=== PATIENT | female | born 1985 | race Hispanic/Latino ===

== ENCOUNTER 2017-01-18 16:09 | Inpatient (IN) | payer OTHER ==
[2017-01-18] MEDS ORDERED: LIDOCAINE HCL/PF 1% 30 ML VIAL SUBCUT PRN (16:28)
[2017-01-18] MEDS ORDERED: FENTANYL 100 MCG/2 ML VIAL IV ONE (16:28)
[2017-01-18] MEDS ORDERED: MISOPROSTOL 200 MCG TABLET PO PRN ×2 (16:28)
[2017-01-18] MEDS ORDERED: ONDANSETRON HCL 4 MG/2 ML VIAL IV PRN (16:28)
[2017-01-18] MEDS ORDERED: HOME MEDICATION LIST NEEDED 1 EA EACH MISC ONE (16:28)
[2017-01-18] MEDS ORDERED: OXYTOCIN/NORMAL SALINE 30 UNIT/500 ML BAG IV SCH (16:28)
[2017-01-18] MEDS: MISOPROSTOL 25 MCG CAPSULE VAGINALLY SCH ×3 (17:20→23:44)
[2017-01-18] MEDS ORDERED: TERBUTALINE SULFATE 1 MG/ML VIAL IV PRN (17:24)
[2017-01-18] MEDS ORDERED: MISOPROSTOL 25 MCG CAPSULE VAGINALLY ONE (17:28)
--- NOTE | 2017-01-18 17:31 | PROGRESS NOTE:Antepartum ---
Assessment and Plan - Date of Encounter Date of Encounter: 01/18/17 (1) Normal first confirmed, currently in third trimester Status: Acute Assessment and plan: Discussed with patient and spouse. Will proceed with induction. Vertex reconfirmed by ultrasound. They are comfortable with plan. Current Visit: No - Time Spent With Patient Total time spent with greater than 50% in coordination of care (as documented) at patient's floor/unit and/or counseling patient: ELECTRON MICROSCOPIST: Antepartum PN Subj - Subjective Interval history: G1 female at 40 4/7 weeks admitted for Misoprostol cervical ripening and induction of labor after an uncomplicated . Lives in [facility], initial care there and transferred care to [place] in the third trimester. Patient reports: appetite normal, voiding normally, pain well controlled Antepartum ROS: movement normal, no vaginal bleeding, no contractions, no loss of fluid, no headache, no shortness of breath, no visual changes ELECTRON MICROSCOPIST: Antepartum PN Obj Exam - Latest Vital Signs and I&O Latest Vital Signs/I&O: Intake & Output 01/17/17 01/18/17 01/18/17 17:59 05:59 17:59 Weight 70 kg - Exam Heart Monitor: category I Lungs: Bilateral: normal Heart Rhythm: Present: regular Extremities: Absent: tenderness Abdomen: Present: soft. Absent: tenderness Cervical Dilatation Degree: 1 (FT) Cervical Effacement Percentage: 50 Station: -2
[2017-01-18 18:17] LABS: BASOPHILS 0.2 % (0.0-2.0); EOSINOPHILS 0.3 % (0.0-6.0); HEMATOCRIT 34.3 % (36.0-48.0); LYMPHOCYTES 16.2 % (20.0-40.0); LYMPHOCYTES# 1.6 X 10^3uL (0.8-3.8); MEAN CELL VOLUME 78.1 fL (80.0-100.0); MEAN CORPUS. HGB CONCENTRATION 32.2 g/dL (32.0-36.0); MEAN CORPUSCULAR HEMOGLOBIN 25.1 pg (29.0-35.0); MEAN PLATELET VOLUME 10.1 fL (7.4-10.4); MONOCYTES 7.4 % (2.0-10.0); MONOCYTES# 0.7 X 10^3uL (0.2-1.0); NEUTROPHILS 75.9 % (54.0-75.0); NEUTROPHILS# 7.6 X 10^3uL (2.6-6.7); PLATELET COUNT 248 X 10^3uL (130-440); RED BLOOD COUNT 4.39 X 10^6uL (4.20-6.10); RED CELL DISTRIBUTION WIDTH 14.4 % (11.5-14.5); WHITE BLOOD COUNT 9.9 X 10^3uL (3.9-10.7)
[2017-01-18] MEDS ORDERED: LORazepam 0.5 MG TABLET PO PRN (19:49)
[2017-01-18 19:57] LABS: ABO GROUP TYPE A; ANTIBODY SCREEN NEGATIVE; RH TYPE POSITIVE
--- NOTE | 2017-01-18 20:22 | PROGRESS NOTE:Antepartum ---
Assessment and Plan - Date of Encounter Date of Encounter: 01/18/17 (1) Normal first confirmed, currently in third trimester Status: Acute Assessment and plan: Second dose misoprostol placed. Current Visit: No - Time Spent With Patient Total time spent with greater than 50% in coordination of care (as documented) at patient's floor/unit and/or counseling patient: RECEPTION CENTRE MANAGER: Antepartum PN Subj - Subjective Patient reports: appetite normal, voiding normally, pain well controlled Antepartum ROS: contractions (irregular, mild), movement normal, no vaginal bleeding, no loss of fluid, no headache, no shortness of breath, no visual changes RECEPTION CENTRE MANAGER: Antepartum PN Obj Exam - Latest Vital Signs and I&O Latest Vital Signs/I&O: Vital Signs Temp 36.9 C 01/18/17 17:15 Pulse 97 H 01/18/17 17:15 Resp 16 01/18/17 17:15 BP 112/63 01/18/17 17:15 Pulse Ox 97 01/18/17 17:15 Intake & Output 01/18/17 01/18/17 01/19/17 05:59 17:59 05:59 Weight 70 kg Other: Urine Appearance Cloudy Urine Color Yellow Voiding Method Toilet - Exam Heart Monitor: category I Heart Rhythm: Present: regular Extremities: Absent: tenderness Abdomen: Present: soft. Absent: tenderness Cervical Dilatation Degree: 1 Cervical Effacement Percentage: 50 Station: -2 - Lab Labs: Laboratory Last Values WBC 9.9 X 10^3uL (3.9-10.7) 01/18/17 16:28 RBC 4.39 X 10^6uL (4.20-6.10) 01/18/17 16:28 Hgb 11.0 g/dL (12.0-16.0) L 01/18/17 16:28 Hct 34.3 % (36.0-48.0) L 01/18/17 16:28 MCV 78.1 fL (80.0-100.0) L 01/18/17 16:28 MCH 25.1 pg (29.0-35.0) L 01/18/17 16:28 MCHC 32.2 g/dL (32.0-36.0) 01/18/17 16:28 RDW 14.4 % (11.5-14.5) 01/18/17 16:28 Plt Count 248 X 10^3uL (130-440) 01/18/17 16:28 MPV 10.1 fL (7.4-10.4) 01/18/17 16:28 Neutrophils % 75.9 % (54.0-75.0) H 01/18/17 16:28 Lymphocytes % 16.2 % (20.0-40.0) L 01/18/17 16:28 Eosinophils % 0.3 % (0.0-6.0) 01/18/17 16:28 Basophils % 0.2 % (0.0-2.0) 01/18/17 16:28 Neutrophils # 7.6 X 10^3uL (2.6-6.7) H 01/18/17 16:28 Lymphocytes # 1.6 X 10^3uL (0.8-3.8) 01/18/17 16:28 Monocytes 7.4 % (2.0-10.0) 01/18/17 16:28 Monocytes # 0.7 X 10^3uL (0.2-1.0) 01/18/17 16:28 Eosinophils # 0.0 X 10^3uL (0.0-0.4) 01/18/17 16:28 Basophils # 0.0 X 10^3uL (0.0-0.1) 01/18/17 16:28 ABO Group Type a 01/18/17 16:28 Rh Factor Positive 01/18/17 16:28 Antibody Screen Negative 01/18/17 16:28
[2017-01-18] MEDS: LACTATED RINGERS 1,000 ML IV SCH (20:50)
[2017-01-18] MEDS ORDERED: LORazepam 0.5 MG TABLET ONE (23:43)
[2017-01-19] MEDS: FENTANYL 100 MCG/2 ML VIAL IV PRN ×3 (00:56→01:21)
[2017-01-19] MEDS: LACTATED RINGERS 1,000 ML IV SCH ×2 (01:18→04:43)
[2017-01-19] MEDS ORDERED: ROPIVACAINE HCL IN 0.9%NACL/PF 120 MG/60 ML SYRINGE ONE (01:45)
[2017-01-19] MEDS ORDERED: PHENYLEPHRINE HCL 10,000 MCG/ML VIAL ONE (01:48)
[2017-01-19] MEDS ORDERED: BUPIVACAINE HCL/PF 0.5% 30 ML VIAL ONE (02:00)
[2017-01-19] MEDS: EPHEDrine SULFATE 50 MG/ML VIAL ONE ×2 (02:24→10:58)
[2017-01-19] MEDS ORDERED: NALBUPHINE HCL 10 MG/ML AMP IV PRN (03:09)
[2017-01-19] MEDS ORDERED: EPHEDrine SULFATE 50 MG/ML VIAL IV PRN (03:09)
[2017-01-19] MEDS: PHENYLEPHRINE HCL 10,000 MCG/ML VIAL IV PRN ×2 (03:52→03:59)
--- NOTE | 2017-01-19 04:41 | PROGRESS NOTE:Antepartum ---
Assessment and Plan - Date of Encounter Date of Encounter: 01/19/17 (1) Normal first confirmed, currently in third trimester Status: Acute Assessment and plan: Good response to cervical ripening, will begin Pitocin for augmentation. Current Visit: No - Time Spent With Patient Total time spent with greater than 50% in coordination of care (as documented) at patient's floor/unit and/or counseling patient: FINANCIAL SECRETARY: Antepartum PN Subj - Subjective Interval history: Has received 2 doses of Misoprostol. Excellent response, now has epidural in place and is comfortable but contractions have spaced out. Patient reports: pain well controlled Antepartum ROS: contractions, movement normal, no vaginal bleeding, no loss of fluid, no headache, no shortness of breath, no visual changes FINANCIAL SECRETARY: Antepartum PN Obj Exam - Latest Vital Signs and I&O Latest Vital Signs/I&O: Vital Signs Temp 36.6 C 01/18/17 20:20 Pulse 69 01/18/17 21:15 Resp 16 01/18/17 21:15 BP 115/74 01/18/17 21:15 Pulse Ox 97 01/18/17 21:15 Intake & Output 01/18/17 01/18/17 01/19/17 05:59 17:59 05:59 Intake Total 1000 Balance 1000 Weight 70 kg Intake: IV 1000 Right Forearm 1000 Other: Urine Appearance Cloudy Cloudy Urine Color Yellow Yellow Voiding Method Toilet Toilet - Exam Heart Monitor: category I (currently, did have decels associated with low BP after epidural, corrected now) Heart Rhythm: Present: regular Extremities: Absent: tenderness Abdomen: Present: soft. Absent: tenderness Cervical Dilatation Degree: 5 Cervical Effacement Percentage: 70 Station: -2 Additional Comments: AROM clear - Lab Labs: Laboratory Last Values WBC 9.9 X 10^3uL (3.9-10.7) 01/18/17 16:28 RBC 4.39 X 10^6uL (4.20-6.10) 01/18/17 16:28 Hgb 11.0 g/dL (12.0-16.0) L 01/18/17 16:28 Hct 34.3 % (36.0-48.0) L 01/18/17 16:28 MCV 78.1 fL (80.0-100.0) L 01/18/17 16:28 MCH 25.1 pg (29.0-35.0) L 01/18/17 16:28 MCHC 32.2 g/dL (32.0-36.0) 01/18/17 16:28 RDW 14.4 % (11.5-14.5) 01/18/17 16:28 Plt Count 248 X 10^3uL (130-440) 01/18/17 16:28 MPV 10.1 fL (7.4-10.4) 01/18/17 16:28 Neutrophils % 75.9 % (54.0-75.0) H 01/18/17 16:28 Lymphocytes % 16.2 % (20.0-40.0) L 01/18/17 16:28 Eosinophils % 0.3 % (0.0-6.0) 01/18/17 16:28 Basophils % 0.2 % (0.0-2.0) 01/18/17 16:28 Neutrophils # 7.6 X 10^3uL (2.6-6.7) H 01/18/17 16:28 Lymphocytes # 1.6 X 10^3uL (0.8-3.8) 01/18/17 16:28 Monocytes 7.4 % (2.0-10.0) 01/18/17 16:28 Monocytes # 0.7 X 10^3uL (0.2-1.0) 01/18/17 16:28 Eosinophils # 0.0 X 10^3uL (0.0-0.4) 01/18/17 16:28 Basophils # 0.0 X 10^3uL (0.0-0.1) 01/18/17 16:28 ABO Group Type a 01/18/17 16:28 Rh Factor Positive 01/18/17 16:28 Antibody Screen Negative 01/18/17 16:28
[2017-01-19] MEDS ORDERED: OXYTOCIN/NORMAL SALINE 30 UNIT/500 ML BAG IV SCH ×2 (05:00→09:21)
[2017-01-19] MEDS ORDERED: LANOLIN CREAM 1 APP/7 GM TUBE TOPICAL PRN (09:21)
[2017-01-19] MEDS ORDERED: HOME MEDICATION LIST NEEDED 1 EA EACH MISC ONE (09:21)
[2017-01-19] MEDS ORDERED: LORazepam 0.5 MG TABLET PO PRN (09:21)
[2017-01-19] MEDS ORDERED: HC ACETATE/PRAMOXINE HCL FOAM 1 APPLIC APP RC PRN (09:21)
[2017-01-19] MEDS ORDERED: MISOPROSTOL 200 MCG TABLET PO PRN ×2 (09:21)
[2017-01-19] MEDS ORDERED: BENZOCAINE/LANOLIN/ALOE 1 SPRAY BOTTLE TOPICAL PRN (09:21)
[2017-01-19] MEDS ORDERED: DIPHENHYDRAMINE 25 MG CAPSULE PO PRN (09:21)
[2017-01-19] MEDS ORDERED: WITCH HAZEL 1 EACH MED..PAD TP PRN (09:21)
[2017-01-19] MEDS ORDERED: ACETAMINOPHEN/CODEINE 300/30MG 1 TAB TABLET PO PRN (09:21)
--- NOTE | 2017-01-19 09:32 | PROCEDURE NOTE: Vaginal Del ---
OB Procedure Vaginal Delivery - Vaginal Delivery Estimated Gestational Age (weeks): 40 (01/31) Delivery Presentation: vertex Delivery Position: OA Heart Monitor: category I (during most of labor) Intrapartum Events: meconium, recurrant variable decelerations (with pushing) Delivery Induction: misoprostol Delivery Augmentation: rupture of membranes, pitocin Amniotic Fluid: meconium Delivery Monitor: external FHT, external uterine Delivery Method: Indicators for Instrumentation: maternal exhaustion Delivery procedure: station (+3) Vacuum type: hard cup Shoulders: without difficulty Placenta delivered: yes Delivery Placenta: expressed Delivery Cord: 3 Vessels Nuchal Cord # of Loops: 0 Cord clamped: Yes (delayed) Cord blood obtained: Yes Episiotomy: none Delivery Laceration: vaginal lac/Rt Sidewall, 1st degree Suture Type for Laceration Repair: 3.0 Vicryl at 1 minute: 8 at 5 minutes: 9 Gender: Female [place] Weight: 2.602 kg Estimate Blood Loss Delivery: 300cc Anesthesia: Epidural Patient tolerated procedure: well, no complications Delivery Complications: Present: none Additional comments: Admitted for induction of labor at term. Misoprostol times 2 doses with good response. Epidural per her request. Amniotomy preformed, fluid initially looked clear but as she progressed meconium noted. Oxytocin augmentation begun and she progressed well. Allowed to "labor down" for 1 hour then active pushing. Unable to effect delivery due to exhaustion. LVE performed during a single contraction over an intact perineum. Infant vigorous and crying at . Small right vaginal sidewall laceration closed with interrupted figure of 8 3-0 Vicryl sutures. Placenta expressed. Tolerated well without complication.
[2017-01-19] MEDS ORDERED: IBUPROFEN 600 MG TABLET PO ONE (09:41)
[2017-01-19] MEDS ORDERED: LORazepam 0.5 MG TABLET ONE (09:43)
[2017-01-19] MEDS ORDERED: DIPHENHYDRAMINE 50 MG/ML VIAL IV SCH (10:30)
[2017-01-19] MEDS ORDERED: DIPHENHYDRAMINE 50 MG/ML VIAL ONE (10:33)
[2017-01-19] MEDS: DOCUSATE SODIUM 100 MG CAPSULE PO SCH ×2 (10:54→22:02)
[2017-01-19] MEDS: MISOPROSTOL 25 MCG CAPSULE VAGINALLY SCH (10:59)
[2017-01-19] MEDS: IBUPROFEN 600 MG TABLET PO PRN ×2 (15:23→22:01)
[2017-01-20 05:51] LABS: HEMATOCRIT 28.3 % (36.0-48.0); HEMOGLOBIN 9.1 g/dL (12.0-16.0)
--- NOTE | 2017-01-20 10:16 | PROGRESS NOTE:Vaginal Delivery ---
Assessment and Plan - Date of Encounter Date of Encounter: 01/20/17 (1) care following vaginal delivery Status: Acute Assessment and plan: Discussed hemorrhoid care, otherwise normal care. Current Visit: Yes - Time Spent With Patient Total time spent with greater than 50% in coordination of care (as documented) at patient's floor/unit and/or counseling patient: PATIENT CARE COORDINATOR: Vag Fabrice PN Subjective Interval history: Having hemorrhoid discomfort. Post- Day: 1 Patient reports: appetite normal, voiding normally, pain well controlled [place]: doing well, nursing well PATIENT CARE COORDINATOR: Vag Del PN Obj Exam - Latest Vital Signs and I&O Latest Vital Signs/I&O: Vital Signs Temp 36.7 C 01/20/17 04:52 Pulse 82 01/20/17 04:52 Resp 16 01/20/17 04:52 BP 115/56 01/20/17 04:52 Pulse Ox 96 01/20/17 04:52 Intake & Output 01/19/17 01/20/17 01/20/17 17:59 05:59 17:59 Intake Total 2500 Output Total 1275 1550 Balance 1225 -1550 Intake: IV 2500 Right Forearm 1000 Lr 1000 ml Bag 1,000 ml @ 1000 999 mls/hr IV CONT MICHAEL Rx#:[id number] Pitocin/Ns 30 Unit/500 ml 500 See Dose Instructions IV CONT MICHAEL Rx#:[id number] Output: Urine 1275 1550 Uretheral (Watson) 100 Other: Urine Appearance Clear Clear Urine Color Dark Red Dark Red Uretheral (Watson) Pale Yellow Voiding Method Toilet Toilet - Exam Heart Rhythm: Present: regular Extremities: Absent: tenderness Abdomen: Present: soft. Absent: tenderness Uterus: Present: firm, non tender - Lab Labs: Laboratory Last Values WBC 9.9 X 10^3uL (3.9-10.7) 01/18/17 16:28 RBC 4.39 X 10^6uL (4.20-6.10) 01/18/17 16:28 Hgb 9.1 g/dL (12.0-16.0) L 01/20/17 05:45 Hct 28.3 % (36.0-48.0) L 01/20/17 05:45 MCV 78.1 fL (80.0-100.0) L 01/18/17 16:28 MCH 25.1 pg (29.0-35.0) L 01/18/17 16:28 MCHC 32.2 g/dL (32.0-36.0) 01/18/17 16:28 RDW 14.4 % (11.5-14.5) 01/18/17 16:28 Plt Count 248 X 10^3uL (130-440) 01/18/17 16:28 MPV 10.1 fL (7.4-10.4) 01/18/17 16:28 Neutrophils % 75.9 % (54.0-75.0) H 01/18/17 16:28 Lymphocytes % 16.2 % (20.0-40.0) L 01/18/17 16:28 Eosinophils % 0.3 % (0.0-6.0) 01/18/17 16:28 Basophils % 0.2 % (0.0-2.0) 01/18/17 16:28 Neutrophils # 7.6 X 10^3uL (2.6-6.7) H 01/18/17 16:28 Lymphocytes # 1.6 X 10^3uL (0.8-3.8) 01/18/17 16:28 Monocytes 7.4 % (2.0-10.0) 01/18/17 16:28 Monocytes # 0.7 X 10^3uL (0.2-1.0) 01/18/17 16:28 Eosinophils # 0.0 X 10^3uL (0.0-0.4) 01/18/17 16:28 Basophils # 0.0 X 10^3uL (0.0-0.1) 01/18/17 16:28 ABO Group Type a 01/18/17 16:28 Rh Factor Positive 01/18/17 16:28 Antibody Screen Negative 01/18/17 16:28
[2017-01-20] MEDS: DOCUSATE SODIUM 100 MG CAPSULE PO SCH ×2 (11:18→20:00)
[2017-01-20] MEDS: IBUPROFEN 600 MG TABLET PO PRN ×2 (11:18→19:56)
[2017-01-20 20:14] VITALS: O2SAT 94
--- NOTE | 2017-01-21 08:19 | DC SUMMARY: Obstetrical/GYN ---
Discharge Summary: Surg/OB Provider: Date of Admission: 01/18/17 Admitting Provider: GAURANG VICTORIA MD Attending Provider: GAURANG VICTORIA MD Discharging Provider: GAURANG VICTORIA MD Primary Care Provider: Discharge Date: 01/21/17 - Diagnosis (1) care following vaginal delivery Status: Acute Hospital Course: Ms. ORTIZ is a 31 year old G1 female admitted for induction of labor at term. Misoprostol times 2 doses with good response. Epidural per her request. Amniotomy preformed, fluid initially looked clear but as she progressed meconium noted. Oxytocin augmentation begun and she progressed well. Allowed to "labor down" for 1 hour then active pushing. Unable to effect delivery due to exhaustion. LVE performed during a single contraction over an intact perineum. Infant vigorous and crying at . Small right vaginal sidewall laceration closed with interrupted figure of 8 3-0 Vicryl sutures. Placenta expressed. Tolerated well without complication. Post- she had persistent hemorrhoid pain but otherwise did well. She is discharged to home on the second day in good condition. Discharge - Patient/Caregiver Discharge Instructions Activity Level: Pelvic rest Diet: Regular Additional Instructions: Gaurang Vitcoria M.D. INSTRUCTIONS 1. Please make an appointment to see me for a checkup two weeks and six weeks after delivery. Call the clinic to make these appointments. Do not hesitate to call me, or my nurse, with any questions or problems regarding gynecological care or breast feeding. 2. It would be best for you to restrict your activities to caring for yourself and your baby for the first week. As you feel up to it, you may increase your activity. Use your own judgment, listen to your body, and take frequent short rests as you become tired. 3. If needed you will receive a prescription for pain pills upon hospital discharge. Generally ibuprofen is adequate after vaginal delivery for discomfort. If needed, take as directed. If necessary, you may drive a car a short distance after 1 -2 weeks. Use good judgment. Do not drive a car or operate machinery as long as you are taking narcotic pain medication. 4. You may climb stairs but try to make the trip worthwhile. Do not walk up and down excessively. 5. If you are breast feeding, wear a well supporting bra day and night (a maternity or sports bra). Use the lanolin or roque cream provided to you after each feeding. It does not need to be washed off before you feed your baby. Do not use soap on your nipples; wash them with clear water. Wash your hands before you handle your baby or your breasts. Do not allow your nipples to become caked with milk or to be constantly wet with milk that leaks between feedings. 6. To help prevent complications with : a)Ensure good position and latch b)Ensure feeding on demand c)Empty breasts fully d)Use hand expression to help relieve fullness e)Expose breast engorgement to warm water by shower or basin f)Call if unrelieved or if you have questions Letty Velarde : Magy Good, ___[phone] Vidal Reed, ___ 7. If you are not breast feeding, wear a well supporting bra day and night for at least two full weeks. Should your breasts become full, apply ice packs and avoid stimulation to your breasts. This full feeling may last for 2-3 days and then gradually subside. 8. Start your Kegel exercises at home. Walking should start immediately but limit your normal exercise program until after your six-week check up. 9. Bleeding may be heavier after activity. If your bleeding does not slow down after resting, please notify me immediately. 10. Sitting in three inches of warm water with Epsom salt for 15 minutes, three times per day will help ease the discomfort from your episiotomy. The episiotomy will be healed in about three weeks. The stitches will dissolve. Small superficial skin separations should not cause anxiety, as they heal quickly. 11. Vaginal discharge is usually bright red for two to four days following delivery, and then becomes pinkish or dark red in four to ten days. The vaginal flow will gradually subside. You may have intermittent episodes of increased bleeding and may pass a few clots. The bleeding should not be heavier than a normal period for more than a few days. Use only mini or maxi pads. Vaginal discharge may last four to eight weeks. Call me if bleeding seems excessive. No tampons, douching or intercourse until your bleeding stops. 12. Eat a well-balanced diet. You should drink 6-8 glasses of fluid per day and eat the same kind of diet you were on during your . Fresh fruits, green leafy vegetables, bran cereals and whole wheat breads should be eaten to prevent constipation. If necessary, stool softeners may be obtained at the pharmacy without a prescription. Use as directed. Milk of Magnesia may be used for constipation. 13. Continue taking your vitamins and iron for one month. If you are breast feeding, continue taking your vitamins as long as you breast feed. If you are breast feeding be very cautious about taking medications not prescribed by me. Always inform your physician that you are breast feeding before he or she prescribes any medication for you. 14. Report any vomiting or fever above 100.5 degrees. It is not necessary to take your temperature daily, but if you feel like you have a fever, take your temperature and call me if necessary. 15. I can be reached through the hospital charge nurse ([phone]) or the hospital metal pickling equipment operator ([phone]). If no one answers, please leave your name and number and expect a return phone call in 30 minutes. Gaurang Victoria M.D. 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 Absent: tenderness Uterus: Present: firm, non tender Additional Comments: examined vulva last evening, no ecchymosis or hematoma Discharge Summary Data - Medication History Medication History: Home Medications Hydrocortisone 2.5% Anusol 1 1 christina RECTAL PRN 11/28/16 Acetaminophen [Tylenol] 325 - 650 mg PO PRN 01/18/17 Calcium Carbonate [Tums] 2 tab PO PRN 01/18/17 Pnv No.122/Iron/Folic Acid [ Multi Tablet] 1 each PO DAILY 01/18/17 Inpatient Medications 01/19/17 09:00 Docusate Sodium [Colace] 100 mg PO Q12H 01/19/17 09:21 Acetaminophen/Codeine 300/30Mg [Tylenol with Codeine #3] 1 - 2 tab PO Q3H PRN Benzocaine/Lanolin/Aloe [Dermoplast Leslie] 1 spray TOPICAL PRN PRN Diphenhydramine [Benadryl] 50 mg PO HS PRN Hc Acetate/Pramoxine HCl Foam [Proctofoam-Hc Foam] 1 applic RC PRN PRN Ibuprofen [Motrin] 600 mg PO Q6H PRN LORazepam [Ativan] 0.5 mg PO Q1H PRN Lanolin Cream [Lansinoh] 1 christina TOPICAL PRN PRN Misoprostol [Cytotec] 600 mcg PO ONCE PRN Misoprostol [Cytotec] 800 mcg PO ONCE PRN Oxytocin/Normal Saline [Pitocin/Ns 30 Unit/500 ml] 30 unit IV CONT Witch Debo [Tucks Take-Alongs] 1 each TP PRN PRN Procedures and tests throughout hospitalization: Completed Lab Orders 01/18/17 16:28 ABO GROUP [HEM] Urgent ANTIBODY SCREEN [HEM] Urgent CBC AUTO DIF, MDIF/RMOR IF IND [HEM] Urgent RH TYPE [HEM] Urgent 01/20/17 05:45 HGB & HCT PANEL [HEM] AMDRAW Pending Orders 12/25/16 13:04 Resuscitation Status Routine 01/18/17 16:28 Admit: Inpatient Routine VTE Prophylaxis Scoring/ Ordering Routine May use Jacuzzi PRN 01/19/17 09:00 Docusate Sodium [Colace] 100 mg PO Q12H 01/19/17 09:21 May shower TOLERATED Post Assessment PER PROTOCOL Vital Signs Q8H Acetaminophen/Codeine 300/30Mg [Tylenol with Codeine #3] 1 - 2 tab PO Q3H PRN Benzocaine/Lanolin/Aloe [Dermoplast Leslie] 1 spray TOPICAL PRN PRN Diphenhydramine [Benadryl] 50 mg PO HS PRN Hc Acetate/Pramoxine HCl Foam [Proctofoam-Hc Foam] 1 applic RC PRN PRN Ibuprofen [Motrin] 600 mg PO Q6H PRN LORazepam [Ativan] 0.5 mg PO Q1H PRN Lanolin Cream [Lansinoh] 1 christina TOPICAL PRN PRN Misoprostol [Cytotec] 600 mcg PO ONCE PRN Misoprostol [Cytotec] 800 mcg PO ONCE PRN Oxytocin/Normal Saline [Pitocin/Ns 30 Unit/500 ml] 30 unit IV CONT Dilma Rivasel [Tucks Take-Alongs] 1 each TP PRN PRN 01/19/17 09:25 Activity [Activity: As Tolerated] PRN 01/19/17 Breakfast Regular [DIET] 01/20/17 Lunch Special Meal (NLC)
[2017-01-21 08:23] VITALS: BP 110/69; PULSE 82; RESP 18; TEMP 97.9
[2017-01-21] MEDS: DOCUSATE SODIUM 100 MG CAPSULE PO SCH (09:10)
[2017-01-21] MEDS: IBUPROFEN 600 MG TABLET PO PRN (10:00)
== END 2017-01-21 11:00 | disposition home or self-care (01) | DRG 775 ==
LOC: NLCPRO 16:09 → NLC 16:10
PROVIDERS: ADMIT Obstetrics & Gynecology; ATTEND Obstetrics & Gynecology
PROC: 10907ZC Drainage of Amniotic Fluid, Therapeutic from Products of Conception, Via Natural or Artificial Opening (ICD-10-PCS; principal; 2017-01-18)
PROC: 0HQ9XZZ Repair Perineum Skin, External Approach (ICD-10-PCS; principal; 2017-01-18)
PROC: 10D07Z6 Extraction of Products of Conception, Vacuum, Via Natural or Artificial Opening (ICD-10-PCS; principal; 2017-01-18)
DX: O75.81 Maternal exhaustion complicating labor and delivery (principal); O70.0 First degree perineal laceration during delivery; O77.0 Labor and delivery complicated by meconium in amniotic fluid; O22.43 Hemorrhoids in pregnancy, third trimester; Z37.0 Single live birth
CPT/HCPCS: 85014; 85018; 85025; 86850; 86900; 86901; J1200; J2370; J2795; J3105; J7120; Q0163